=== PATIENT | female | born 1945 | race Caucasian/White ===

== ENCOUNTER → 2017-08-13 09:41 | Outpatient (CLI) | payer MEDICARE, OTHER, SELFPAY ==
[2017-08-13 12:16] LABS: Add Manual Diff / Slide Review NO; Basophils Percent Auto 0.5 % (0-2); Eosinophils Percent Auto 1.4 % (2-4); Hematocrit 43.7 % (36-46); Hemoglobin 14.5 g/dL (12.0-16.0); Lymphocytes Percent Auto 18.1 % (25-40); Mean Corpuscular HGB Conc 33.3 % (30-36); Mean Corpuscular Hemoglobin 31.7 PG (26-34); Mean Corpuscular Volume 95.3 fL (80-100); Monocytes Percent Auto 6.7 % (3-14); Neutrophils Absolute Auto 7900 /uL (3000-5900); Neutrophils Percent Auto 73.3 % (50-75); Platelet Count 406 X10^3/uL (150-400); Red Blood Cell Count 4.58 X10^6/uL (4.0-5.2); Red Cell Distribution Width 14.9 % (11.6-14.8); White Blood Cell Count 10.8 X10^3/uL (4.5-11.0)
[2017-08-13 12:51] LABS: Alanine Aminotransferase 27 IU/L (9-52); Albumin 4.4 g/dL (3.5-5.0); Albumin Globulin Ratio 1.5 (1.0-2.8); Alkaline Phosphatase 57 U/L (38-126); Aspartate Aminotransferase 24 IU/L (14-36); Bilirubin Total 0.4 mg/dL (0.2-1.3); Blood Urea Nitrogen 14 mg/dL (7-17); Calcium 9.5 mg/dL (8.4-10.2); Carbon Dioxide 29 mmol/L (22-32); Chloride 98 mmol/L (98-107); Cholesterol 250 mg/dL (140-199); Estimated Glomerular Filt Rate > 60.0 mL/min (>60); Globulin 2.9 g/dL (1.7-4.1); Glucose 93 mg/dL (80-110); HDL Cholesterol 64 mg/dL (40-60); HEMOLYSIS < 15 (0-50); LDL Cholesterol Calculated 161 mg/dL (<100); Sodium 138 mmol/L (137-145); Total Protein 7.3 g/dL (6.3-8.2); Triglycerides 125 mg/dL (35-150)
== END ==
PROVIDERS: Family Provider Family Medicine; PCP Family Medicine; Visit Provider Family Medicine
DX: G89.29 Other chronic pain (principal)
CPT/HCPCS: 36415; 80053; 80061; 85025

== ENCOUNTER 2017-09-05 10:30 | Outpatient (RCR) | payer MEDICARE, OTHER, SELFPAY ==
--- NOTE | 2017-07-29 14:39 | OT.OP.EVAL ---
Visit Care Team Role Provider Type Leland Osborne MD Family Provider Physician Primary Care Provider Specialty: Family Practice Address: [facility] [place], [address] Email: Godwin Elder MD Attending Provider Non-Staff Specialty: Orthopedics Address: [address] [place] [address], [place], [address] Email: Occupational Therapy Initial Evaluation OT Outpatient Adult Evaluation Start: 07/28/17 11:00 Freq: Status: Active Protocol: Document 07/28/17 11:01 AMS (Rec: 07/28/17 11:16 AMS [id number]) General Information Referral Referring Physician Godwin Elder MD Precautions closed intra-articular fracture of distal end of right radius with routine healing, subsequent encounter ROM and progressive strengthening Visit Information Visit Number [id number] Plan of Care Dates 07/28/17-10/20/17 Insurance Information Medicare; g-codes required Identification Identification Confirmed Yes: Medical chart confirmation Patient Patient Concerns Intermittent pain 'shooting up arm' w/ supination Medical Information Medical History Pt reported that she has a follow-up re: healing of fracture on 08/01/17. Medical Health History completed by patient and placed in paper chart. (+) h/o allergies; arthritis; back pain; depression; headaches; hernia; neck pain; vision problems. Daughter also reported that her Mother struggles w/ vertigo. List of current medications also placed in paper chart. Previous Therapy Previous Therapy/Therapies Yes History of Therapy 1-2 times per week (Reported approx 8-9 visits at prior outpatient clinic) [facility] Physical Therapy Copy of HEP exercises placed in paper chart Patient reported being provided w/ yellow theraputty for home use Social Information Social History Resides in mobile home w/ daughter. Mobile home is located in [place], [place]. Kerry has large dog and cat. 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 Skill Level Impaired Driving Driving Ability Reports 'just not using this hand unless needed' (re: right hand on steering wheel) Skill Level Impaired Observations Observations Observations Decreased ability to manipulate objects; 'just starting to use right hand to hold coffee mug'. Reports using left hand to complete tasks if unable to complete with right. Pt reported that she 'just kept doing things with the right hand. She didn' t realize that she needed to stop if it was painful. I thought it was normal that it was 'clunking'. Palpation Assessment Location Two Palpation Location Right wrist Palpation Findings Tenderness One Palpation Location Dorsal right forearm Palpation Findings Tenderness Fine Motor Handedness Hand Preference Right ROM - Elbow/Forearm Elbow/Forearm Measured in Degrees Left Active Elbow/Forearm ROM WFL Yes ROM Testing Position Sitting Right Active ROM Testing Position Sitting Forearm Pron AROM (degrees) WNL 0-90 Forearm Sup AROM (degrees) WNL 0-85 Comments Intermittent c/o 'bee stings' going distal --> proximal up forearm w/ active forearm supination (*primarily noted when completing supination at normal speed/quickly) --> subsequent guarding of UE ROM - Wrist Wrist Range of Motion Measured in Degrees Left ROM Testing Position Sitting Wrist Flex AROM (degrees) 0-70 Wrist Ext AROM Fingers Open (degrees) 0-75 Ulnar Deviation AROM (degrees) 0-30 Radial Deviation AROM (degrees) 0-15 Right ROM Testing Position Sitting Wrist Flex AROM (degrees) 0-45 Wrist Ext AROM Fingers Open (degrees) 0-60 Ulnar Deviation AROM (degrees) 0-20 Radial Deviation AROM (degrees) 0-10 Comments Pain-free AROM measurements taken Elbow/Forearm Strength Elbow and Forearm Manual Muscle Testing Left Pronation 5 Normal Supination 5 Normal Right Pronation 3+ Fair+ Supination 3 Fair Wrist Strength Wrist Manual Muscle Testing Left Flexion (C7) 5 Normal Extension (C6) 5 Normal Ulnar Deviation 5 Normal Radial Deviation 5 Normal Right Flexion (C7) 3 Fair Extension (C6) 3 Fair Ulnar Deviation 3 Fair Radial Deviation 3+ Fair+ Fountain Server/Hand Strength Fountain Server/Hand Strength Left Fountain Server Dynamometer II 52.3 Lateral Pinch Strengh (lbs) 14.3 Right Fountain Server Dynamometer II 45.7 Lateral Pinch Strengh (lbs) 10.3 Goals Treatment Treatment Home exercise program. Short Term Goals Short Term Goals 1. 4-/5 MMT right wrist extension. 2. 4-/5 MMT right wrist flexion. 3. 4-/[address] 4. 4-/5 MMT right wrist UD. 5. Pt will verbally report ability to wash personal dishes on regular, daily basis , with active incorporation of the right hand/upper extremity without complaints of pain/discomfort. Care Home Goals Care Home Goals 1. Pt will be modified I with HEP utilizing provided written and visual instructions. 2. Pt will report ability to open and close containers on a daily basis with the right hand with mod independence. 3. Pt will demonstrate improved functional independence with active incorporation of the right hand, as evidenced by score of < 15.00 on QuickDASH UE Outcome Measure. Assessment/Plan Assessment Patient Response Good Rehabilitation Potential Good Impairments Identified Coordination/Dexterity Functional Activities Pain Weakness Range of Motion Recreational Activities Meaningful Activities Additional Impairments Identified IADLS Treatment Assessment Pt is a 71 year-old right-hand dominant female referred to outpt OT secondary to closed intra-articular fracture of distal end of right radius with MD orders for ROM and progressive strengthening. Pt reported that she has already had 8 to 9 outpatient therapy visits since injury (which medical reports indicate occurred on 04/29/17). Prior to the fracture, pt reported that she was independent w/ BADLS and IADLS without use of compensatory strategies. PMH: allergies; arthritis; back pain; depression; headaches; hernia; neck pain; vision problems; vertigo. Evaluation findings: Intermittent pain; decreased pain-free active range of motion of distal R UE; decreased distal R UE strength ; decreased tolerance for weight bearing; decreased functional independence with active incorporation of dominant, right hand in day-to -day life. Thus, pt would likely benefit from skilled OT to address these areas of impairment. Home Exercise Program Initiated HEP. Daughter accompanied Mother. Thus, all questions were answered. Reviewed with Patient Home Exercise Program Patient Understanding Good Plan Comment 12 weeks Treatment Frequency Once a Week Comment Increase frequency as needed/ as recommended per referring MD Therapeutic Contents Active Range of Motion Client Education Functional Activities Home Exercise Program Manual Therapy Education Stretching/Flexibility Activities Therapeutic Activities Therapeutic Exercises Modalities Types of Modalities Contrast Bath E-Stim Ice Massage Ultrasound Patient Instruction Home Exercise Program Plan of Care Questions/Concerns Other Please Sign and Return: I have reviewed this Plan of Care and certify that the skilled therapy services above are required to meet the patient?s needs. Physician Signature Date Printed Name and Credentials Clinical Instructor Signature Printed Name and Credentials
--- NOTE | 2017-07-29 14:43 | OT.OP.EVAL ---
Visit Care Team Role Provider Type Leland Osborne MD Family Provider Physician Primary Care Provider Specialty: Family Practice Address: [facility] [place], [address] Email: Godwin Elder MD Attending Provider Non-Staff Specialty: Orthopedics Address: [address] [place] [address], [place], [address] Email: Occupational Therapy Initial Evaluation OT Outpatient Adult Evaluation Start: 07/28/17 11:00 Freq: Status: Active Protocol: Document 07/28/17 11:01 AMS (Rec: 07/28/17 11:16 AMS [email or web address]) General Information Referral Referring Physician Godwin Elder MD Precautions closed intra-articular fracture of distal end of right radius with routine healing, subsequent encounter ROM and progressive strengthening Visit Information Visit Number [id number] Plan of Care Dates 07/28/17-10/20/17 Insurance Information Medicare; g-codes required Identification Identification Confirmed Yes: Medical chart confirmation Patient Patient Concerns Intermittent pain 'shooting up arm' w/ supination Medical Information Medical History Pt reported that she has a follow-up re: healing of fracture on 08/01/17. Medical Health History completed by patient and placed in paper chart. (+) h/o allergies; arthritis; back pain; depression; headaches; hernia; neck pain; vision problems. Daughter also reported that her Mother struggles w/ vertigo. List of current medications also placed in paper chart. Previous Therapy Previous Therapy/Therapies Yes History of Therapy 1-2 times per week (Reported approx 8-9 visits at prior outpatient clinic) [facility] Physical Therapy Copy of HEP exercises placed in paper chart Patient reported being provided w/ yellow theraputty for home use Social Information Social History Resides in mobile home w/ daughter. Mobile home is located in [place], [place]. Kerry has large dog and cat. 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 Skill Level Impaired Driving Driving Ability Reports 'just not using this hand unless needed' (re: right hand on steering wheel) Skill Level Impaired Observations Observations Observations Decreased ability to manipulate objects; 'just starting to use right hand to hold coffee mug'. Reports using left hand to complete tasks if unable to complete with right. Pt reported that she 'just kept doing things with the right hand. She didn' t realize that she needed to stop if it was painful. I thought it was normal that it was 'clunking'. Palpation Assessment Location Two Palpation Location Right wrist Palpation Findings Tenderness One Palpation Location Dorsal right forearm Palpation Findings Tenderness Fine Motor Handedness Hand Preference Right ROM - Elbow/Forearm Elbow/Forearm Measured in Degrees Left Active Elbow/Forearm ROM WFL Yes ROM Testing Position Sitting Right Active ROM Testing Position Sitting Forearm Pron AROM (degrees) WNL 0-90 Forearm Sup AROM (degrees) WNL 0-85 Comments Intermittent c/o 'bee stings' going distal --> proximal up forearm w/ active forearm supination (*primarily noted when completing supination at normal speed/quickly) --> subsequent guarding of UE ROM - Wrist Wrist Range of Motion Measured in Degrees Left ROM Testing Position Sitting Wrist Flex AROM (degrees) 0-70 Wrist Ext AROM Fingers Open (degrees) 0-75 Ulnar Deviation AROM (degrees) 0-30 Radial Deviation AROM (degrees) 0-15 Right ROM Testing Position Sitting Wrist Flex AROM (degrees) 0-45 Wrist Ext AROM Fingers Open (degrees) 0-60 Ulnar Deviation AROM (degrees) 0-20 Radial Deviation AROM (degrees) 0-10 Comments Pain-free AROM measurements taken Elbow/Forearm Strength Elbow and Forearm Manual Muscle Testing Left Pronation 5 Normal Supination 5 Normal Right Pronation 3+ Fair+ Supination 3 Fair Wrist Strength Wrist Manual Muscle Testing Left Flexion (C7) 5 Normal Extension (C6) 5 Normal Ulnar Deviation 5 Normal Radial Deviation 5 Normal Right Flexion (C7) 3 Fair Extension (C6) 3 Fair Ulnar Deviation 3 Fair Radial Deviation 3+ Fair+ Rubberizing Mechanic/Hand Strength Rubberizing Mechanic/Hand Strength Left Rubberizing Mechanic Dynamometer II 52.3 Lateral Pinch Strengh (lbs) 14.3 Right Rubberizing Mechanic Dynamometer II 45.7 Lateral Pinch Strengh (lbs) 10.3 Goals Treatment Treatment Home exercise program. Short Term Goals Short Term Goals 1. 4-/5 MMT right wrist extension. 2. 4-/5 MMT right wrist flexion. 3. 4-/[address] 4. 4-/5 MMT right wrist UD. 5. Pt will verbally report ability to wash personal dishes on regular, daily basis , with active incorporation of the right hand/upper extremity without complaints of pain/discomfort. Group Home Goals Group Home Goals 1. Pt will be modified I with HEP utilizing provided written and visual instructions. 2. Pt will report ability to open and close containers on a daily basis with the right hand with mod independence. 3. Pt will demonstrate improved functional independence with active incorporation of the right hand, as evidenced by score of < 15.00 on QuickDASH UE Outcome Measure. Assessment/Plan Assessment Patient Response Good Rehabilitation Potential Good Impairments Identified Coordination/Dexterity Functional Activities Pain Weakness Range of Motion Recreational Activities Meaningful Activities Additional Impairments Identified IADLS Treatment Assessment Pt is a 71 year-old right-hand dominant female referred to outpt OT secondary to closed intra-articular fracture of distal end of right radius with MD orders for ROM and progressive strengthening. Pt reported that she has already had 8 to 9 outpatient therapy visits since injury (which medical reports indicate occurred on 04/29/17). Prior to the fracture, pt reported that she was independent w/ BADLS and IADLS without use of compensatory strategies. PMH: allergies; arthritis; back pain; depression; headaches; hernia; neck pain; vision problems; vertigo. Evaluation findings: Intermittent pain; decreased pain-free active range of motion of distal R UE; decreased distal R UE strength ; decreased tolerance for weight bearing; decreased functional independence with active incorporation of dominant, right hand in day-to -day life. Thus, pt would likely benefit from skilled OT to address these areas of impairment. Home Exercise Program Initiated HEP. Daughter accompanied Mother. Thus, all questions were answered. Reviewed with Patient Home Exercise Program Patient Understanding Good Plan Comment 12 weeks Treatment Frequency Once a Week Comment Increase frequency as needed/ as recommended per referring MD Therapeutic Contents Active Range of Motion Client Education Functional Activities Home Exercise Program Manual Therapy Education Stretching/Flexibility Activities Therapeutic Activities Therapeutic Exercises Modalities Types of Modalities Contrast Bath E-Stim Ice Massage Ultrasound Patient Instruction Home Exercise Program Plan of Care Questions/Concerns Other Please Sign and Return: I have reviewed this Plan of Care and certify that the skilled therapy services above are required to meet the patient?s needs. Physician Signature Date Printed Name and Credentials Clinical Instructor Signature Printed Name and Credentials
--- NOTE | 2017-08-06 11:57 | OT.OP.TRT ---
Visit Care Team Role Provider Type Leland Osborne MD Family Provider Physician Primary Care Provider Specialty: Family Practice Address: [address] [place] [address], [address] Email: Godwin Elder MD Attending Provider Non-Staff Specialty: Orthopedics Address: [facility], [place], [address] Email: Occupational Therapy Treatment Note OT Outpatient Treatment Note - Adult Start: 07/28/17 11:00 Freq: Status: Active Protocol: Document 08/06/17 11:33 AMS (Rec: 08/06/17 11:56 AMS [email or web address]) OT Outpatient Adult Treatment Note Session Time Visit Start Time 10:30 Visit Stop Time 11:20 Total Visit Minutes 50 Visit Information Visit Number [id number] Plan of Care Dates 07/28/17-10/20/17 Insurance Information Medicare; g-codes required Setting Treatment Setting Outpatient Care Visit Type Note Type Treatment Note General Information General Information Pt is a 71 year-old right-hand dominant female referred to outpt OT secondary to closed intra-articular fracture of distal end of right radius with MD orders for ROM and progressive strengthening. - Subjective Identification Type Name Identification Reconciled With Medical Record Observations I can now roll open the car window with the right hand per patient. I couldn't do that before. Patient provided documentation from MD 08/01/17 appt to therapist. Placed in paper chart. Your range of motion is improving and it appears as if you are having less swelling in your wrist. I recommend you continue with your therapy and continue your home exercises. Avoid strenuous pushing, pulling, lifting, or grasping. You may ease back into your normal daily activities but do this slowly to avoid re-injury. Follow-up with me in 4 weeks without x-rays. Chief Complaint(s) Restricts Additional Areas of Concern Intermittent pain 'shooting up arm' w/ supination Patient Expectation/Goals Return to PLOF Patient/Caregiver Compliance with Home Good Exercise Program - Objective Objective Measurements Improved tolerance for isometric hold w/ 'prayer pose '. Complaints of pain/ discomfort w/ use of 1# DB w/ supination, wrist flexion w/ forearm in supination, and RD in forearm neutral. Exercises ceased. Improving functional use of the right; reported ability to roll open the car window with the right hand. Reported that she has to 'make a fist with the right hand to try to be able to push and get out of bed in the morning' . Short Term Goals 1. 4-/5 MMT right wrist extension. 2. 4-/5 MMT right wrist flexion. 3. 4-/[address] 4. 4-/5 MMT right wrist UD. 5. Pt will verbally report ability to wash personal dishes on regular, daily basis , with active incorporation of the right hand/upper extremity without complaints of pain/discomfort. [facility] Goals 1. Pt will be modified I with HEP utilizing provided written and visual instructions. 2. Pt will report ability to open and close containers on a daily basis with the right hand with mod independence. 3. Pt will demonstrate improved functional independence with active incorporation of the right hand, as evidenced by score of < 15.00 on QuickDASH UE Outcome Measure. - Treatment 1 Descriptor HEP Education re: swelling management (isotoner/edema compression glove options) TT isometric exercises Exercises 7 Descriptor Isometric Modified chair hold Isometric TT hold Side Both Body Position Standing/Sitting Sets 1 Repetitions 5 6 Descriptor Isometric Push Side Right Body Position Standing - TT Sets 2 Repetitions 10 5 Descriptor Isometric Hold - Push Therapeutic ball (fingers facing forward --> right); Wall simulation Side Right Body Position Sitting Sets 2 Repetitions 10 Time Hold for 2-3 seconds 4 Descriptor Elbow Flexion/Extension Forearm Neutral Forearm Supination Side Right Body Position Sitting Sets 2 Repetitions 10 Resistance 1# DB 3 Descriptor Wrist Extension - Forearm Pronation Wrist Flexion/Extension - Forearm Neutral Wrist RD/UD - Forearm Pronation Side Right Body Position Sitting Sets 2 Repetitions 10 Resistance 1# DB 2 Descriptor Forearm AROM Supination (elbow flexed/elbow extended at sh height) Side Right Body Position Sitting Sets 1 Repetitions 10 1 Descriptor Wrist AROM Flexion/Extension RD/UD Circles Side Right Body Position Sitting Sets 1 Repetitions 10 - Assessment Patient Response to Treatment Good Rehab Potential Good Assessment of Overall Progress Improving Assessment of Improvement Improved tolerance for isometric hold w/ 'prayer pose '. Complaints of pain/ discomfort w/ use of 1# DB w/ supination, wrist flexion w/ forearm in supination, and RD in forearm neutral. Exercises ceased. Improving functional use of the right; reported ability to roll open the car window with the right hand. Home Exercise Program Education re: swelling management (isotoner/edema compression glove options); TT isometric exercises Reviewed with Patient/Caregiver Goals Progress Being Made Home Exercise Program Patient/Caregiver Understanding Good - Plan Therapy Recommendations Continue with Current Program Advance per Rehabilitation Protocol Additional Therapy Recommendations Schedule additional appts
--- NOTE | 2017-08-13 12:32 | OT.OP.TRT ---
Visit Care Team Role Provider Type Leland Osborne MD Family Provider Physician Primary Care Provider Specialty: Family Practice Address: [address] [place] [address], [id number] Email: Godwin Elder MD Attending Provider Non-Staff Specialty: Orthopedics Address: [address] [facility], [place], [address] Email: Occupational Therapy Treatment Note OT Outpatient Treatment Note - Adult Start: 07/28/17 11:00 Freq: Status: Active Protocol: Document 08/13/17 10:32 AMS (Rec: 08/13/17 12:32 AMS [email or web address]) OT Outpatient Adult Treatment Note Session Time Visit Start Time 10:35 Visit Stop Time 11:15 Total Visit Minutes 40 Visit Information Visit Number [id number] Plan of Care Dates 07/28/17-10/20/17 Insurance Information Medicare; g-codes required Setting Treatment Setting Outpatient Care Visit Type Note Type Treatment Note General Information General Information Pt is a 71 year-old right-hand dominant female referred to outpt OT secondary to closed intra-articular fracture of distal end of right radius with MD orders for ROM and progressive strengthening. - Subjective Identification Type Name Identification Reconciled With Medical Record Observations I still have a hard time turning door knobs or handles. I feel like this arm is getting better though per Linda. I feel like it is getting stronger. It needs to be stronger though. Chief Complaint(s) Restricts Additional Areas of Concern Intermittent pain 'shooting up arm' w/ supination Patient Expectation/Goals Return to PLOF Patient/Caregiver Compliance with Home Good Exercise Program - Objective Objective Measurements Decreasing pain/discomfort w/ active resistance exercises. No complaints of pain/ discomfort w/ use of 1# DB w/ supination, wrist flexion w/ forearm in supination, and RD in forearm neutral. Exercises advanced on this date. Improving functional mobility of R wrist; able to make wrist circles in both directions without pain/discomfort. Short Term Goals 1. 4-/5 MMT right wrist extension. 2. 4-/5 MMT right wrist flexion. 3. 4-/[address] 4. 4-/5 MMT right wrist UD. 5. Pt will verbally report ability to wash personal dishes on regular, daily basis , with active incorporation of the right hand/upper extremity without complaints of pain/discomfort. 08/13/17= 25% met Dispensary Clerk Goals 1. Pt will be modified I with HEP utilizing provided written and visual instructions. 08/13= 25% met. upgraded 2. Pt will report ability to open and close containers on a daily basis with the right hand with mod independence. = 25% met 3. Pt will demonstrate improved functional independence with active incorporation of the right hand, as evidenced by score of < 15.00 on QuickDASH UE Outcome Measure. 08/13/17= 25% met - Treatment 1 Descriptor HEP carrying light items down by side provided medium soft red theraputty home use Complexity Upgraded Exercises 9 Descriptor Pick-up transfer Infront of body (3.3#) Pick-up row w/ supination (2.2 #) Side Right Body Position Sitting Sets 3 Repetitions 10 8 Descriptor Wrist circles - CW, CCW Side Right Body Position Sitting Sets 3 Repetitions 10 Resistance 1.1# 5 Descriptor Isometric Hold Prayer pose with and without resistance Body Position Sitting Sets 2 Repetitions 10 Time Hold for 2-3 seconds 4 Descriptor Forearm Supination Side Right Body Position Sitting Sets 3 Repetitions 10 Resistance 1# DB 3 Descriptor Wrist Extension - Forearm Pro; elbow ext Wrist Flexion - Forearm sup Wrist RD/UD - Forearm neutral; by side Side Right Body Position Sitting Sets 3 Repetitions 10 Resistance 1# DB Complexity Upgraded 2 Descriptor Forearm AROM Supination (elbow flexed/elbow extended at sh height) Side Right Body Position Sitting Sets 1 Repetitions 10 1 Descriptor Wrist AROM Flexion/Extension RD/UD Circles Side Right Body Position Sitting Sets 1 Repetitions 10 - Assessment Patient Response to Treatment Good Rehab Potential Good Impairments Identified ADLs Balance Coordination/Dexterity Functional Activities Motor Function Pain Weakness Range of Motion Recreational Activities Meaningful Activities Stiffness Swelling Soft Tissue Mobility Motor Planning Eye-Hand Coordination Assessment of Overall Progress Improving Assessment of Improvement Decreasing pain/discomfort. Exercises and HEP advanced on this date. Improving functional mobility of R wrist . Improving pain-free AROM of distal upper extremity. Home Exercise Program Advanced. See treatment section above. All questions answered. Reviewed with Patient/Caregiver Goals Progress Being Made Home Exercise Program Patient/Caregiver Understanding Good - Plan Therapy Recommendations Continue with Current Program Advance per Rehabilitation Protocol
--- NOTE | 2017-08-22 14:56 | OT.OP.TRT ---
Visit Care Team Role Provider Type Leland Osborne MD Family Provider Physician Primary Care Provider Specialty: Family Practice Address: [address] [place] [address], [id number] Email: Godwin Elder MD Attending Provider Non-Staff Specialty: Orthopedics Address: [address] [facility], [place], [address] Email: Occupational Therapy Treatment Note OT Outpatient Treatment Note - Adult Start: 07/28/17 11:00 Freq: Status: Active Protocol: Document 08/22/17 14:35 AMS (Rec: 08/22/17 14:56 AMS [email or web address]) OT Outpatient Adult Treatment Note Session Time Visit Start Time 12:30 Visit Stop Time 13:18 Total Visit Minutes 48 Visit Information Visit Number [id number] Plan of Care Dates 07/28/17-10/20/17 Insurance Information Medicare; g-codes required Setting Treatment Setting Outpatient Care Visit Type Note Type Treatment Note General Information General Information Pt is a 71 year-old right-hand dominant female referred to outpt OT secondary to closed intra-articular fracture of distal end of right radius with MD orders for ROM and progressive strengthening. - Subjective Identification Type Name Identification Reconciled With Medical Record Observations I am now able to manage door knobs and handles with this hand. I can also pick-up my coffee pot and my milk with this hand per Linda. Chief Complaint(s) Restricts Additional Areas of Concern Intermittent pain 'shooting up arm' w/ supination Patient Expectation/Goals Return to PLOF Patient/Caregiver Compliance with Home Good Exercise Program - Objective Objective Measurements Decreasing pain/discomfort. Exercises and HEP advanced on this treatment date. Improving functional abilities of the right hand. Please refer to below for progress towards meeting established goals. Elbow/Forearm Strength Elbow and Forearm Manual Muscle Testing Left Pronation 5 Normal Supination 5 Normal Right Pronation 4 Good Supination 3+ Fair+ Comments Initial eval: forearm supination 3/5 forearm pronation Wrist Strength Wrist Manual Muscle Testing Left Flexion (C7) 5 Normal Extension (C6) 5 Normal Ulnar Deviation 5 Normal Radial Deviation 5 Normal Right Flexion (C7) 4 Good Extension (C6) 3+ Fair+ Ulnar Deviation 4 Good Radial Deviation 4 Good Comments Initial eval: wrist flex 3/5 wrist ext 3/5 wrist UD 3/[address] 3+/5 ROM - Wrist Wrist Range of Motion Measured in Degrees Left ROM Testing Position Sitting Wrist Flex AROM (degrees) 0-70 Wrist Ext AROM Fingers Open (degrees) 0-75 Ulnar Deviation AROM (degrees) 0-30 Radial Deviation AROM (degrees) 0-15 Right ROM Testing Position Sitting Wrist Flex AROM (degrees) 0-50 Wrist Ext AROM Fingers Open (degrees) 0-65 Ulnar Deviation AROM (degrees) 0-25 Radial Deviation AROM (degrees) 0-15 Comments Initial eval: wrist flex 0-45 wrist ext 0-65 wrist UD 0-[address] 0-10 Short Term Goals 1. 4-/5 MMT right wrist extension. 08/22/17= 50% met 2. 5/5 MMT right wrist flexion . 08/22/17= GOAL UPGRADED 3. 5/[address] 08/22= GOAL UPGRADED 4. 5/5 MMT right wrist UD. 08/22= GOAL UPGRADED 5. Pt will verbally report ability to wash personal dishes on regular, daily basis , with active incorporation of the right hand/upper extremity without complaints of pain/discomfort. 08/22/17= 50 % met; difficulty managing iron skillet GOALS MET: 4/5 MMT right wrist flexion. * MET 08/22/17 4/[address] *MET 4/5 MMT right wrist UD. *MET 08/22/17 Sleep Scientist Goals 1. Pt will be modified I with HEP utilizing provided written and visual instructions. = 25% met. upgraded 2. Pt will demonstrate improved functional independence with active incorporation of the right hand, as evidenced by score of < 15.00 on QuickDASH UE Outcome Measure. 08/13/17= 25% met GOALS MET Pt verbally reported ability to open and close containers on a daily basis with R hand with mod I (used can director of accounting w/ the R hand). *MET 08/22/17 - Treatment 1 Descriptor HEP Carrying items in tote Provided green theraputty for home use Complexity Upgraded Exercises 10 Descriptor Wrist twists Side Right Body Position Sitting Sets 3 Repetitions 10 Resistance 4.4# spherical ball 9 Descriptor Pick-up transfer Infront of body (4.4#) Rows w/ wrist in ext (3.3#) Side Right Body Position Sitting Sets 3 Repetitions 10 Complexity Upgraded 8 Descriptor Wrist circles - CW, CCW Side Right Body Position Sitting Sets 3 Repetitions 10 Resistance 2.2# Complexity Upgraded 5 Descriptor Isometric Hold Prayer pose with and without resistance Body Position Sitting Sets 1 Repetitions 5 Time Hold for 2-3 seconds 4 Descriptor Forearm Supination Elbow 90 degrees (2# DB) Elbow ext - side (3.3#) Sh abd 90 degrees (2.2#) Side Right Body Position Sitting Sets 3 Repetitions 10 Complexity Upgraded 3 Descriptor Wrist Ext Elbow 90 degrees (2# DB) Sh flex - forearm pro (3.3#) Side Right Body Position Sitting Sets 3 Repetitions 10 Complexity Upgraded 2 Descriptor Wrist Flex - Forearm sup (2# DB) Wrist RD Forearm neutral (3# DB) Wrist UD Arm by side (3# DB) Side Right Body Position Sitting Sets 3 Repetitions 10 Complexity Upgraded 1 Descriptor Wrist PROM exercises Side Right Body Position Sitting Sets 1 Repetitions 5 - Assessment Patient Response to Treatment Good Rehab Potential Good Impairments Identified ADLs Balance Coordination/Dexterity Functional Activities Motor Function Pain Weakness Range of Motion Recreational Activities Meaningful Activities Stiffness Swelling Soft Tissue Mobility Motor Planning Eye-Hand Coordination Assessment of Overall Progress Improving Assessment of Improvement Decreasing pain/discomfort of R UE. Therapeutic exercises, HEP, and goals advanced on this treatment date. Improving functional abilities of the right hand; this is evidenced by patient's ability to manage handles, doorknobs, containers w/ the right hand. Improving strength of the distal R UE; this is evidenced by patient meeting short term goals in this area. Patient continues to have difficulty managing heavier items (e.g., box of water bottles, iron skillet, transferring cat); therefore, there is continued need to address distal UE strength. Home Exercise Program Advanced. See treatment section above. All questions answered. Reviewed with Patient/Caregiver Goals Progress Being Made Home Exercise Program Patient/Caregiver Understanding Good - Plan Therapy Recommendations Continue with Current Program Advance per Rehabilitation Protocol
--- NOTE | 2017-09-05 12:11 | OT.OP.DC ---
Visit Care Team Role Provider Type Leland Osborne MD Family Provider Physician Primary Care Provider Address: [facility] [place], [address] Email: Godwin Elder MD Attending Provider Non-Staff Address: [address] [facility], [place], [address] Email: OT Outpatient OT Outpatient Adult Evaluation Start: 07/28/17 11:00 Freq: Status: Active Protocol: Document 07/28/17 11:01 AMS (Rec: 07/28/17 11:16 AMS [email or web address]) General Information Visit Information Visit Number [id number] Plan of Care Dates 07/28/17-10/20/17 Insurance Information Medicare; g-codes required Referral Referring Physician Godwin Elder MD Precautions closed intra-articular fracture of distal end of right radius with routine healing, subsequent encounter ROM and progressive strengthening Identification Identification Confirmed Yes: Medical chart confirmation Patient Patient Concerns Intermittent pain 'shooting up arm' w/ supination Medical Information Medical History Pt reported that she has a follow-up re: healing of fracture on 08/01/17. Medical Health History completed by patient and placed in paper chart. (+) h/o allergies; arthritis; back pain; depression; headaches; hernia; neck pain; vision problems. Daughter also reported that her Mother struggles w/ vertigo. List of current medications also placed in paper chart. Previous Therapy Previous Therapy/Therapies Yes History of Therapy 1-2 times per week (Reported approx 8-9 visits at prior outpatient clinic) [facility] Physical Therapy Copy of HEP exercises placed in paper chart Patient reported being provided w/ yellow theraputty for home use Social Information Social History Resides in mobile home w/ daughter. Mobile home is located in [place], [place]. Kerry has large dog and cat. Therapy Pain Assessment Pain When Pain Assessed pre-tx Pain Present Pain Present Pain Reported Location Right Anterior Distal Arm Scale Used 3-4/10 Numeric Elbow -> Hand Patient Questionnaires Quick Dash- Upper Extremity Quick Dash UE Score 29.55 Quick Dash UE Impairment 20 to 39% Impaired (Score 20- 39) ADLs Overall Ability Basic ADLs WFL IADLs Overall Function Basic IADLs Mildly Impaired Comments Pt reports compensating w/ L hand/UE Director Medicaid House Hold Management Reports intermittent pain/ discomfort w/ washing dishes and using the vacuum. Skill Level Impaired Driving Driving Ability Reports 'just not using this hand unless needed' (re: right hand on steering wheel) Skill Level Impaired Observations Observations Observations Decreased ability to manipulate objects; 'just starting to use right hand to hold coffee mug'. Reports using left hand to complete tasks if unable to complete with right. Pt reported that she 'just kept doing things with the right hand. She didn' t realize that she needed to stop if it was painful. I thought it was normal that it was 'clunking'. Palpation Assessment Location Two Palpation Location Right wrist Palpation Findings Tenderness One Palpation Location Dorsal right forearm Palpation Findings Tenderness Fine Motor Handedness Hand Preference Right Goals Treatment Treatment Home exercise program. Short Term Goals Short Term Goals 1. 4-/5 MMT right wrist extension. 2. 4-/5 MMT right wrist flexion. 3. 4-/[address] 4. 4-/5 MMT right wrist UD. 5. Pt will verbally report ability to wash personal dishes on regular, daily basis , with active incorporation of the right hand/upper extremity without complaints of pain/discomfort. Intermediate Goals Intermediate Goals 1. Pt will be modified I with HEP utilizing provided written and visual instructions. 2. Pt will report ability to open and close containers on a daily basis with the right hand with mod independence. 3. Pt will demonstrate improved functional independence with active incorporation of the right hand, as evidenced by score of < 15.00 on QuickDASH UE Outcome Measure. Assessment/Plan Assessment Patient Response Good Rehabilitation Potential Good Impairments Identified Coordination/Dexterity Functional Activities Pain Weakness Range of Motion Recreational Activities Meaningful Activities Additional Impairments Identified IADLS Treatment Assessment Pt is a 71 year-old right-hand dominant female referred to outpt OT secondary to closed intra-articular fracture of distal end of right radius with MD orders for ROM and progressive strengthening. Pt reported that she has already had 8 to 9 outpatient therapy visits since injury (which medical reports indicate occurred on 04/29/17). Prior to the fracture, pt reported that she was independent w/ BADLS and IADLS without use of compensatory strategies. PMH: allergies; arthritis; back pain; depression; headaches; hernia; neck pain; vision problems; vertigo. Evaluation findings: Intermittent pain; decreased pain-free active range of motion of distal R UE; decreased distal R UE strength ; decreased tolerance for weight bearing; decreased functional independence with active incorporation of dominant, right hand in day-to -day life. Thus, pt would likely benefit from skilled OT to address these areas of impairment. Home Exercise Program Initiated HEP. Daughter accompanied Mother. Thus, all questions were answered. Reviewed with Patient Home Exercise Program Patient Understanding Good Plan Comment 12 weeks Treatment Frequency Once a Week Comment Increase frequency as needed/ as recommended per referring MD Therapeutic Contents Active Range of Motion Client Education Functional Activities Home Exercise Program Manual Therapy Education Stretching/Flexibility Activities Therapeutic Activities Therapeutic Exercises Modalities Types of Modalities Contrast Bath E-Stim Ice Massage Ultrasound Patient Instruction Home Exercise Program Plan of Care Questions/Concerns Other Sensory Assessment Sensory Profile2 Functional Wrist/Hand Scan Hand Side OT Outpatient Muscle Testing Start: 07/28/17 11:00 Freq: Status: Active Protocol: Document 09/05/17 10:29 AMS (Rec: 09/05/17 12:10 AMS [email or web address]) Director Internal Audit/Hand Strength Director Internal Audit/Hand Strength Left Director Internal Audit Dynamometer II 52.3 Lateral Pinch Strengh (lbs) 14.3 Comments Initial evaluation findings: Avg 52.3# w/ left digital commentator Avg 14.3# w/ left lateral pinch Right Director Internal Audit Dynamometer II 61.0 Lateral Pinch Strengh (lbs) 12.3 Comments Initial evaluation findings: Avg 45.7# w/ left digital commentator Avg 10.3# w/ left lateral pinch OT Outpatient Range of Motion Start: 07/28/17 11:00 Freq: Status: Active Protocol: Document 09/05/17 10:29 AMS (Rec: 09/05/17 12:10 AMS [email or web address]) ROM - Wrist Wrist Range of Motion Measured in Degrees Left ROM Testing Position Sitting Wrist Flex AROM (degrees) 0-70 Wrist Ext AROM Fingers Open (degrees) 0-75 Ulnar Deviation AROM (degrees) 0-30 Radial Deviation AROM (degrees) 0-15 Right ROM Testing Position Sitting Wrist Flex AROM (degrees) 0-55 Wrist Ext AROM Fingers Open (degrees) 0-67 Ulnar Deviation AROM (degrees) 0-30 Radial Deviation AROM (degrees) 0-15 Comments Initial eval: wrist flex 0-45 wrist ext 0-65 wrist UD 0-[address] 0-10 OT Outpatient Treatment Note - Adult Start: 07/28/17 11:00 Freq: Status: Active Protocol: Document 09/05/17 10:29 AMS (Rec: 09/05/17 12:10 AMS [email or web address]) OT Outpatient Adult Treatment Note Session Time Visit Start Time 10:35 Visit Stop Time 11:17 Total Visit Minutes 42 Visit Information Visit Number [id number] Plan of Care Dates 07/28/17-10/20/17 Insurance Information Medicare; g-codes required Setting Treatment Setting Outpatient Care Visit Type Note Type Treatment Note General Information General Information Pt is a 71 year-old right-hand dominant female referred to outpt OT secondary to closed intra-articular fracture of distal end of right radius with MD orders for ROM and progressive strengthening. - Subjective Identification Type Name Identification Reconciled With Medical Record Observations Patient saw PA on Tuesday August 29, 2017. Instructions for patient were as follows: 'The only thing left is to do strengthening. Continue to work with therapy until you feel as if you have returned to normal'. Copy of After Visit Summary was placed in paper chart. I think I am ready to be discharged. I am basically able to do everything I could before this happened per Linda. Chief Complaint(s) Restricts Additional Areas of Concern Intermittent pain 'shooting up arm' w/ supination Patient Expectation/Goals Return to PLOF Patient/Caregiver Compliance with Home Good Exercise Program - Objective Objective Measurements Patient completed Pain Grid Assessment on this date; patient indicated 1/10 on numeric pain scale (0-10) relative to right wrist. Patient completed QuickDASH UE Outcome Measure; patient obtained a score of 7.5. Please refer to below for progress towards meeting established goals. ROM - Wrist Wrist Range of Motion Measured in Degrees Left ROM Testing Position Sitting Wrist Flex AROM (degrees) 0-70 Wrist Ext AROM Fingers Open (degrees) 0-75 Ulnar Deviation AROM (degrees) 0-30 Radial Deviation AROM (degrees) 0-15 Right ROM Testing Position Sitting Wrist Flex AROM (degrees) 0-55 Wrist Ext AROM Fingers Open (degrees) 0-67 Ulnar Deviation AROM (degrees) 0-30 Radial Deviation AROM (degrees) 0-15 Comments Initial eval: wrist flex 0-45 wrist ext 0-65 wrist UD 0-[address] 0-10 Director Internal Audit/Hand Strength Director Internal Audit/Hand Strength Left Director Internal Audit Dynamometer II 52.3 Lateral Pinch Strengh (lbs) 14.3 Comments Initial evaluation findings: Avg 52.3# w/ left digital commentator Avg 14.3# w/ left lateral pinch Right Director Internal Audit Dynamometer II 61.0 Lateral Pinch Strengh (lbs) 12.3 Comments Initial evaluation findings: Avg 45.7# w/ left digital commentator Avg 10.3# w/ left lateral pinch Short Term Goals ALL GOALS DISCHARGED; PATIENT TO BE DISCHARGED TO HEP 1. 4-/5 MMT right wrist extension. *MET 09/05/2017; 4/5 MMT 2. 5/5 MMT right wrist flexion . *GOAL PARTIALLY MET 09/05/17; 5-/5 MMT 3. 5/[address] * MET 09/05/17; 5/5 MMT 4. 5/5 MMT right wrist UD. * MET 09/05/17; 5/5 MMT 5. Pt will verbally report ability to wash personal dishes on regular, daily basis , with active incorporation of the right hand/upper extremity without complaints of pain/discomfort. *MET GOALS MET: 4/5 MMT right wrist flexion. * MET 08/22/17 4/[address] *MET 4/5 MMT right wrist UD. *MET 08/22/17 Intermediate Goals ALL GOALS DISCHARGED; PATIENT TO BE DISCHARGED TO HEP 1. Pt will be modified I with HEP utilizing provided written and visual instructions. *MET 09/05/17 2. Pt will demonstrate improved functional independence with active incorporation of the right hand, as evidenced by score of < 15.00 on QuickDASH UE Outcome Measure. *MET 09/05/17; obtained score of 7.5 GOALS MET Pt verbally reported ability to open and close containers on a daily basis with R hand with mod I (used can striper spray gun w/ the R hand). *MET 08/22/17 - Treatment 1 Descriptor HEP - Focus of treatment session Provided firm montes theraputty Instructed in PROM stretches w / near full elbow extension; written and visual instructions provided and copies placed in paper chart. Patient denied questions on current HEP Complexity Upgraded Exercises 11 Descriptor Strength Testing ROM Testing - Assessment Patient Response to Treatment Excellent Rehab Potential Excellent Additional Impairments Identified wrist strengthAROM w/ flex/ext ; managing larger awkward items (cat box) Assessment of Overall Progress Improving Assessment of Improvement Patient reports that she is near her PLOF other than managing large heavy awkward items (cat litter box). She is demonstrating improving wrist and forearm strength and ROM; however, continues to present w/ decreased wrist flex/ext AROM and strength compared to non-dominant side. Patient reports that she is mod I w/ current HEP; thus, can continue w/ strengthening and passive range of motion exercises on own without need for further outpatient treatment. Patient is also demonstrating improving functional use of the dominant right hand, decreased pain/ discomfort, and increased digital commentator /lateral pinch strength. Based on improved functional gains with use of dominant right hand, patient request/modified independence w/ HEP, patient to be discharged from OT to HEP. Home Exercise Program Advanced. All questions were answered. Patient to be discharged to HEP. Reviewed with Patient/Caregiver Goals Progress Being Made Home Exercise Program Patient/Caregiver Understanding Good - Plan Therapy Recommendations Discharge to Home Exercise Program Discharge from Occupational Therapy
== END 2017-10-02 15:45 ==
LOC: OT 10:30
PROVIDERS: Family Provider Family Medicine; PCP Family Medicine; Visit Provider Orthopaedic Surgery
DX: S52.571D Other intraarticular fracture of lower end of right radius, subsequent encounter for closed fracture with routine healing (principal)
CPT/HCPCS: 97110; 97165; 97530